=== PATIENT | female | born 1965 | race Caucasian/White ===

== ENCOUNTER → 2020-05-09 | Outpatient (CLI) | payer BC | LOC: LAB 00:23 | DX: Z01.812 Encounter for preprocedural laboratory examination (principal); Z20.822 Contact with and (suspected) exposure to COVID-19 | CPT/HCPCS: U0002 ==

== ENCOUNTER → 2020-06-29 | Outpatient (CLI) | payer OTHER | LOC: EROP 20:43 | DX: Z01.812 Encounter for preprocedural laboratory examination (principal); Z20.822 Contact with and (suspected) exposure to COVID-19 | CPT/HCPCS: U0002 ==

== ENCOUNTER → 2020-09-09 | Outpatient (CLI) | payer OTHER | LOC: EROP 20:49 | DX: Z20.822 Contact with and (suspected) exposure to COVID-19 (principal) | CPT/HCPCS: U0002 ==